=== PATIENT | female | born 1985 | race Hispanic/Latino ===

== ENCOUNTER 2016-04-27 18:48 | Emergency (ER) | payer OTHER ==
[~2016-04-27] VITALS: Ht 144.8 cm; Wt 90.9 kg
[~2016-04-27 18:48] MED LIST: Docusate Sodium PO; Ibuprofen PO; NOMED; OXYC1TAB24 PO
[2016-04-27 18:53] VITALS: BP 133/97; PULSE 113; RESP 16; O2SAT 100
--- NOTE | 2016-04-27 19:20 | ED.REPORT ---
HPI-Rash / Abscess Date of Service Apr 27, 2016 ED Provider: Kendal Carlson History of Present Illness: 31-year-old female with a left upper inner thigh abscess. Present 2 days and growing. She tried to pop it yesterday and it just made it worse. Stomach hurts but no nausea vomiting or diarrhea and no fever. Never had any similar symptoms Nursing Notes Stated Complaint: LEFT LEG PAIN Chief Complaint: Skin Rash/Abscess Nursing Notes Reviewed: Yes Allergies: Coded Allergies: cefazolin sodium (Verified Allergy, Unknown, 04/27/16) Scheduled Sulfamethoxazole/Trimeth 800-160 mg (Bactrim DS) 1 Each Tablet 1 TABLET PO BID Scheduled PRN Ibuprofen (Ibuprofen) 800 Mg Tablet 800 MG PO TID PRN PRN For Pain General Time Seen by MD: 19:06 Chief Complaint Abscess Arrived By: Walk-in Onset Occurred: 2 days ago Symptom Duration: Constant Location: : Lower extremity Pertinent Negative: Pt denies other symptoms Similar Sx Previous: No Past Medical History Smoking History Never Smoker Review of Systems Basic Review of Systems Neurologic: NL mental status Psychiatric: Normal thought content Constitutional: Denies: Chills, Fatigue, Fever Respiratory: Denies: Dyspnea on exertion Cardiovascular: Denies: Chest pain Musculoskeletal: Reports: Extremity pain, Extremity swelling Skin: Reports Swelling Complete sys rev & neg: except as marked. Physical Exam Initial Vital Signs Vital Signs (First) Date Time Temp Pulse Resp B/P Pulse Ox O2 Delivery O2 Flow Rate FiO2 04/27/16 18:53 36.3 113 16 133/97 100 Room Air Head / Eyes: Atraumatic Respiratory: Breath sounds normal, Clear to auscultation, No respiratory distress Cardiovascular: Regular rate & rhythm, Heart sounds normal Color / Condition: Positive: Erythema localized Rash / Lesion Location: Positive: Thigh L Abscess Notes: 2 cm diameter erythematous area of induration with large surrounding area of erythema. very tender. small head present Procedures Incision & Drainage Abscess I & D Abscess: left leg Procedure Performed by: [facility] pract Consent / Setup / Site Prep: Informed consent provided Skin Preparation Agent: Hibiclens - Chlorhexidine Local Anesthesia: Bupivacaine 0.5% Incised Abscess with Scalpel: #11 Pus Drained: Medium, Purulent discharge, Bloody Irrigation: No Post-Procedure / Complications: Culture obtained, Dressing applied, No complications, Patient stable Discharge & Departure Shift Change Sign-Out Procedures: Results discussed Response to Therapy: Improved Impression: Primary Impression: Abscess Disposition: Home Discharge Condition All VS Reviewed: Yes Condition: Stable Patient Instructions: Abscess (ED) Additional Instructions: Monitor abscess site for increasing redness, swelling, pain and return immediately if these occur. Take ibuprofen as needed for pain. Take all of your antibiotics. Apply warm packs to abscess to facilitate drainage. Monitor for fever and return if this occurs. You must follow-up in 2 days. Preferably at your primary care doctor's office. If you cannot get there you can try the walk in clinic or as a last resort the emergency room. There was a culture taken of her abscess and she will receive a phone call if medications need to be changed otherwise take her antibiotics and follow up with her doctor Referrals: [facility] (PCP[facility] EDSupervising Provider for APC: Jean Castrejon MD, Linnea K ARNP Apr 27, 2016 19:20
[2016-04-27] MEDS ORDERED: HYDROcodone-APAP 5-325 mg Tablet PO ONE (20:20)
[2016-04-27] MEDS ORDERED: Trimethoprim-Sulfa 160 mg-800 mg Tablet PO ONE (20:40)
[2016-04-27] MEDS ORDERED: IBUP800T28 PO (20:45)
[2016-04-27] MEDS ORDERED: SULF1TAB7 PO (20:45)
[2016-04-27 20:57] VITALS: BP 135/90; PULSE 99; RESP 17; O2SAT 100
== END 2016-04-27 20:59 | disposition home or self-care (01) ==
LOC: SED 18:48
DX: L02.416 Cutaneous abscess of left lower limb (principal); R10.9 Unspecified abdominal pain; Z88.1 Allergy status to other antibiotic agents